=== PATIENT | male | born 1995 | race Caucasian/White ===

== ENCOUNTER 2021-11-18 09:01 | Emergency (ER) | payer OTHER ==
[~2021-11-18 09:01] MED LIST: CYCLOBENZAPRINE10 MG PO; MEDROL 4MG DOSEP4 MG PO
[2021-11-18 10:01] LABS: BASOPHIL 0.3 % (0-2); EOSINOPHIL 2.3 % (0-5); HCT 41.5 % (42.0-52.0); HGB 13.5 g/dl (13.2-18.0); LYMPHOCYTE 20.7 % (15-48); MCHC 32.5 g/dL (32.0-36.0); MCV 85.9 fL (78.0-100.0); MONOCYTE 5.1 % (0-12); MPV 10.3 fL (6.0-9.5); NEUTROPHIL 71.1 % (41-80); NRBC 0; PLT 177 K/uL (150-400); RBC 4.83 M/uL (4.70-6.00); RDW 13.2 % (11.5-14.0); WBC 6.5 K/uL (4.0-10.5)
[2021-11-18 10:14] LABS: INR 1.03 (0.9-1.2); PROTHROMBIN TIME 13.2 SECONDS (11.9-13.9)
[2021-11-18 10:32] LABS: ALBUMIN 3.7 g/dL (3.4-5.0); BILIRUBIN - TOTAL 0.4 mg/dL (0.2-1.0); BUN/CREAT RATIO (CALC) 11.4 RATIO; CREATININE 0.88 mg/dL (0.67-1.17); GLOBULIN (CALCULATION) 2.8 g/dL; POTASSIUM 4.2 mmol/L (3.5-5.1); TOTAL PROTEIN 6.5 g/dL (6.4-8.2)
== END 2021-11-18 11:03 | disposition home or self-care (01) ==
LOC: FER 09:01
PROVIDERS: Emergency Medicine
DX: R07.9 Chest pain, unspecified (principal); Z86.16 Personal history of COVID-19; Z28.310 Unvaccinated for COVID-19
CPT/HCPCS: 36415; 71045; 80053; 84484; 85025; 85610; 93005; J7030